=== PATIENT | male | born 1955 | race Two or more races ===

== ENCOUNTER 2020-09-29 07:13 | Day surgery (SDC) | payer OTHER, SELFPAY ==
[~2020-09-29] VITALS: Ht 170.2 cm; Wt 56.7 kg
[2020-09-29 07:28] VITALS: BP 123/80
[2020-09-29 12:36] VITALS: BP 101/56
== END 2020-09-29 12:05 | disposition home or self-care (01) ==
LOC: DS 07:13 → OR 09:00 → GI 09:00 → DS 12:05
PROVIDERS: ATTEND Internal Medicine Gastroenterology
DX: R63.4 Abnormal weight loss (principal); K63.89 Other specified diseases of intestine; Z68.20 Body mass index [BMI] 20.0-20.9, adult
CPT/HCPCS: 43235; 45378; J1200; J1610; J2250; J2310; J3010; J3490